=== PATIENT | male | born 1975 | race Caucasian/White ===

== ENCOUNTER 2018-11-28 13:56 | Observation (INO) ==
[2018-11-28] MEDS ORDERED: 0.9 % Sodium Chloride 1,000 ML IVC ONE (14:17)
[2018-11-28] MEDS ORDERED: Ondansetron 4 MG/2 ML VIAL IVP ONE (14:17)
[2018-11-28 15:40] LABS: Basophils % 0.3 %; Eosinophils % 0.2 %; Hematocrit 45.5 % (37.5-50.1); Hemoglobin 14.9 g/dL (12.9-16.9); Immature Granulocytes % 0.5 % (0-4); Lymphocytes # 0.8 K/mcL (0.6-4.6); Lymphocytes % 6.3 %; Mean Corpuscular HGB Conc 32.7 g/dL (31.6-35.5); Mean Corpuscular Hemoglobin 30.3 pg (28.0-33.3); Mean Corpuscular Volume 92.7 fL (83.0-100.0); Monocytes # 0.8 K/mcL (0.0-1.3); Platelet Count 173 K/mcL (140-400); Red Blood Count 4.91 M/mcL (4.19-5.50); Red Cell Distribution Width 13.2 % (11.5-14.5); Segmented Neutrophils % 86.7 %
[2018-11-28 15:41] LABS: Neutrophils # 11.4 K/mcL (1.6-8.9); White Blood Count 13.2 K/mcL (4.3-11.1)
[2018-11-28 15:41] LABS: Bilirubin,Urine Small (Negative); Blood,Urine Negative (Negative); Clarity,Urine Clear (Clear); Color,Urine Yellow (Yellow); Glucose,Urine (UA) Normal (Normal); Ketones,Urine 40 mg/dL (Negative); Leukocyte Esterase,Urine Negative (Negative); Nitrite,Urine Negative (Negative); Protein,Urine 30 mg/dL (Neg-Trace)
[2018-11-28 15:43] LABS: Bacteria,Urine None Seen per hpf (None-Few); Hyaline Casts,Urine None Seen per lpf (None-Few); RBC,Urine 0-3 per hpf (0-3); Squamous Epithelial Cell,Urine Moderate per lpf (None-Few); WBC,Urine 0-3 per hpf (0-3)
[2018-11-28 15:45] LABS: VBG HCO3 22 mEq/L (21-27); VBG PCO2 35 mmHg (41-51); VBG PH 7.41 pH Units (7.32-7.42); VBG PO2 126 mmHg (25-50)
[2018-11-28 16:03] LABS: Acetaminophen < 10 mcg/mL (10-20); Alanine Aminotransferase 12 Units/L (7-52); Albumin 4.3 g/dL (3.5-5.7); Albumin/Globulin Ratio 1.7 (1.1-2.2); Alkaline Phosphatase 52 Units/L (34-104); Aspartate Amino Transferase 19 Units/L (13-39); BUN/Creatinine Ratio 11 (6-26); Bilirubin,Direct 0.1 mg/dL (0.0-0.2); Bilirubin,Indirect 0.7 mg/dL (0.0-1.2); Bilirubin,Total 0.8 mg/dL (0.3-1.0); Blood Urea Nitrogen 9 mg/dL (6-20); Calcium 8.6 mg/dL (8.6-10.3); Carbon Dioxide 22 mEq/L (23-29); Chloride 107 mEq/L (98-107); Creatine Kinase 301 Units/L (30-223); Ethanol < 10 mg/dL (Less than 10); Globulin 2.6 g/dL (2.4-3.5); Glucose 73 mg/dL (70-105); Lipase 12 Units/L (11-82); Osmolality,Calculated 283 (280-300); Potassium 3.4 mEq/L (3.5-5.1); Salicylate < 2.5 mg/dL (15.0-30.0); Sodium 138 mEq/L (136-145); Total Protein 6.9 g/dL (6.4-8.9); Troponin I < 0.03 ng/mL (< 0.04); eGFR For African Americans > 60 (> 60); eGFR For Non-African Americans > 60 (> 60)
[2018-11-28 16:06] LABS: Amphetamine Screen,Urine Negative ng/mL (Cutoff=1000); Barbiturate Screen,Urine Negative ng/mL (Cutoff=200); Benzodiazepines Screen,Urine Negative ng/mL (Cutoff=200); Cannabinoid Screen,Urine Positive ng/mL (Cutoff = 50); Cocaine Screen,Urine Negative ng/mL (Cutoff= 300); Opiate Screen,Urine Negative ng/mL (Cutoff=300); Phencyclidine Screen,Urine Negative ng/mL (Cutoff=25)
[2018-11-28] MEDS ORDERED: cefTRIAXone 2,000 MG in Water for inj. (sterile) 20 ML IVP ONE (20:48)
[2018-11-28] MEDS ORDERED: Dexamethasone 4 MG/ML VIAL IVP ONE (20:48)
[2018-11-28 21:14] LABS: Red Blood Cell,CSF < 0.002 M/mcL
[2018-11-28 21:15] LABS: Appearance,CSF Clear (Clear)
[2018-11-28 21:33] LABS: Glucose,CSF 69 mg/dL (40-70); Total Protein,CSF 101 mg/dL (15-45)
[2018-11-29] MEDS ORDERED: Naloxone 0.4 MG/ML INJ IVP PRN (06:47)
[2018-11-29] MEDS ORDERED: 0.9 % Sodium Chloride 1,000 ML IVC SCH (07:00)
[2018-11-29] MEDS ORDERED: Potassium Chloride 40 MEQ, Lidocaine 1% 2 ML in D5% in Water 500 ML IVPB ONE (07:31)
[2018-11-29 08:05] LABS: Hematocrit 43.1 % (37.5-50.1); Hemoglobin 14.1 g/dL (12.9-16.9); Mean Corpuscular HGB Conc 32.7 g/dL (31.6-35.5); Mean Corpuscular Hemoglobin 30.7 pg (28.0-33.3); Mean Corpuscular Volume 93.7 fL (83.0-100.0); Mean Platelet Volume 10.2 fL (9.4-12.4); Platelet Count 191 K/mcL (140-400); Red Cell Distribution Width 13.1 % (11.5-14.5); White Blood Count 10.1 K/mcL (4.3-11.1)
[2018-11-29 08:26] LABS: BUN/Creatinine Ratio 11 (6-26); Blood Urea Nitrogen 10 mg/dL (6-20); Calcium 9.1 mg/dL (8.6-10.3); Carbon Dioxide 23 mEq/L (23-29); Chloride 104 mEq/L (98-107); Creatine Kinase 137 Units/L (30-223); Glucose 133 mg/dL (70-105); Osmolality,Calculated 287 (280-300); Potassium 4.2 mEq/L (3.5-5.1); Sodium 138 mEq/L (136-145); eGFR For African Americans > 60 (> 60); eGFR For Non-African Americans > 60 (> 60)
[2018-11-29] MEDS ORDERED: Ringers Solution, Lactated 1,000 ML IVC ONE (08:32)
[2018-11-29] MEDS ORDERED: Acetaminophen 325 MG TABLET PO PRN (08:39)
[2018-11-29] MEDS ORDERED: Ringers Solution, Lactated 1,000 ML ONE (09:24)
[2018-11-29] MEDS: Dexamethasone 10 MG/ML VIAL IVP SCH ×3 (09:50→20:14)
[2018-11-29 11:28] LABS: Adenovirus Not Detected (Not Detect); Bordetella Pertussis Not Detected (Not Detect); Chlamydophila pneumoniae Not Detected (Not Detect); Coronavirus 229E Not Detected (Not Detect); Coronavirus HKU1 Not Detected (Not Detect); Coronavirus NL63 Not Detected (Not Detect); Coronavirus OC43 Not Detected (Not Detect); Human Metapneumovirus Not Detected (Not Detect); Human Rhinovirus/Enterovirus Not Detected (Not Detect); Influenza A Subtype 2009 H1 Not Detected (Not Detect); Influenza A Untypeable Not Detected (Not Detect); Influenza B Not Detected (Not Detect); Mycoplasma pneumoniae Not Detected (Not Detect); Parainfluenza Virus 1 Not Detected (Not Detect); Parainfluenza Virus 2 Not Detected (Not Detect); Parainfluenza Virus 3 Not Detected (Not Detect); Parainfluenza Virus 4 Not Detected (Not Detect); Respiratory Syncytial Virus Not Detected (Not Detect)
[2018-11-29] MEDS: 0.9 % Sodium Chloride 1,000 ML IVC SCH (14:55)
[2018-11-29] MEDS ORDERED: *HR* Heparin 5,000 UNIT/ML VIAL SQ SCH (18:00)
[2018-11-29] MEDS ORDERED: Ondansetron 4 MG/2 ML VIAL IVP PRN (20:52)
[2018-11-29] MEDS ORDERED: cefTRIAXone 2,000 MG in 0.9 % Sodium Chloride Mini Bag 100 ML IVPB SCH (21:00)
[2018-11-30] MEDS: Dexamethasone 10 MG/ML VIAL IVP SCH ×2 (03:10→08:10)
[2018-11-30] MEDS: 0.9 % Sodium Chloride 1,000 ML IVC SCH (03:11)
[2018-11-30 03:41] LABS: Basophils % 0.1 %; Hematocrit 39.4 % (37.5-50.1); Hemoglobin 13.2 g/dL (12.9-16.9); Immature Granulocytes % 0.6 % (0-4); Lymphocytes # 0.6 K/mcL (0.6-4.6); Lymphocytes % 3.2 %; Mean Corpuscular HGB Conc 33.5 g/dL (31.6-35.5); Mean Corpuscular Hemoglobin 30.6 pg (28.0-33.3); Mean Corpuscular Volume 91.4 fL (83.0-100.0); Mean Platelet Volume 10.3 fL (9.4-12.4); Monocytes # 0.5 K/mcL (0.0-1.3); Monocytes % 2.3 %; Neutrophils # 18.4 K/mcL (1.6-8.9); Platelet Count 173 K/mcL (140-400); Red Blood Count 4.31 M/mcL (4.19-5.50); Segmented Neutrophils % 93.8 %
[2018-11-30 03:42] LABS: White Blood Count 19.6 K/mcL (4.3-11.1)
[2018-11-30 04:03] LABS: BUN/Creatinine Ratio 16 (6-26); Blood Urea Nitrogen 14 mg/dL (6-20); Calcium 8.9 mg/dL (8.6-10.3); Carbon Dioxide 26 mEq/L (23-29); Chloride 107 mEq/L (98-107); Glucose 143 mg/dL (70-105); Osmolality,Calculated 293 (280-300); Potassium 4.1 mEq/L (3.5-5.1); Sodium 140 mEq/L (136-145); eGFR For African Americans > 60 (> 60); eGFR For Non-African Americans > 60 (> 60)
[2018-11-30] MEDS ORDERED: Nicotine 21 MG PATCH.TD24 TD SCH (09:00)
[2018-11-30 11:48] VITALS: BP 127/78
[2018-11-30] MEDS ORDERED: Aminoglycoside Consult 1 EACH MC ONE (17:23)
[2018-12-01 10:12] LABS: HSV 2 Glycoprotein G IgG CSF 0.08 IV (<=0.89)
[2018-12-03 18:51] LABS: Hepatitis B Surface Antibody < 3.10 mIU/mL
[2018-12-03 18:58] LABS: Hepatitis B Surface Antigen Nonreactive (Nonreactive)
[2018-12-03 19:44] LABS: HIV-1&2 Antibody & p24 Ag Nonreactive (Nonreactive)
[2018-12-03 20:00] LABS: Hepatitis C Virus Antibody Nonreactive (Nonreactive)
== END 2018-11-30 17:24 | disposition left against medical advice (07) | DRG 872 ==
LOC: EMEROOARM 13:56 → 2NENU 13:56 → OBSVTOIN 22:15 → SUATTDRO 22:15 → 2NENU 22:37 → INTOOBSV 11-30 14:56
PROVIDERS: ADMIT Internal Medicine; ATTEND Internal Medicine

== ENCOUNTER 2018-11-30 22:12 | Observation (INO) ==
[2018-11-30] MEDS ORDERED: Ondansetron 4 MG/2 ML VIAL IVP STA (23:19)
[2018-11-30 23:24] LABS: Bilirubin,Urine Negative (Negative); Blood,Urine Negative (Negative); Clarity,Urine Clear (Clear); Color,Urine Yellow (Yellow); Glucose,Urine (UA) Normal (Normal); Ketones,Urine Negative (Negative); Leukocyte Esterase,Urine Negative (Negative); Nitrite,Urine Negative (Negative); PH,Urine 5.5 pH Units (5.0-8.0); Protein,Urine Negative (Neg-Trace); Specific Gravity,Urine 1.019 (1.010-1.025); Urobilinogen,Urine Normal (Normal)
[2018-11-30 23:27] LABS: Amphetamine Screen,Urine Negative ng/mL (Cutoff=1000); Barbiturate Screen,Urine Negative ng/mL (Cutoff=200); Benzodiazepines Screen,Urine Negative ng/mL (Cutoff=200); Cannabinoid Screen,Urine Negative ng/mL (Cutoff = 50); Cocaine Screen,Urine Negative ng/mL (Cutoff= 300); Opiate Screen,Urine Negative ng/mL (Cutoff=300); Phencyclidine Screen,Urine Negative ng/mL (Cutoff=25)
[2018-11-30 23:40] LABS: Basophils % 0.1 %; Mean Corpuscular Hemoglobin 30.8 pg (28.0-33.3); Mean Platelet Volume 10.7 fL (9.4-12.4); Segmented Neutrophils % 91.2 %
[2018-11-30 23:42] LABS: Hematocrit 40.6 % (37.5-50.1); Hemoglobin 13.5 g/dL (12.9-16.9); Immature Granulocytes % 0.9 % (0-4); Lymphocytes # 0.7 K/mcL (0.6-4.6); Lymphocytes % 2.6 %; Mean Corpuscular HGB Conc 33.3 g/dL (31.6-35.5); Mean Corpuscular Volume 92.5 fL (83.0-100.0); Monocytes # 1.4 K/mcL (0.0-1.3); Monocytes % 5.2 %; Neutrophils # 24.7 K/mcL (1.6-8.9); Platelet Count 201 K/mcL (140-400); Red Blood Count 4.39 M/mcL (4.19-5.50); Red Cell Distribution Width 13.2 % (11.5-14.5); White Blood Count 27.1 K/mcL (4.3-11.1)
[2018-12-01 00:09] LABS: Alanine Aminotransferase 15 Units/L (7-52); Albumin 4.2 g/dL (3.5-5.7); Albumin/Globulin Ratio 1.6 (1.1-2.2); Alkaline Phosphatase 48 Units/L (34-104); Aspartate Amino Transferase 18 Units/L (13-39); BUN/Creatinine Ratio 14 (6-26); Bilirubin,Indirect 0.3 mg/dL (0.0-1.2); Bilirubin,Total 0.3 mg/dL (0.3-1.0); Blood Urea Nitrogen 12 mg/dL (6-20); Calcium 9.3 mg/dL (8.6-10.3); Carbon Dioxide 24 mEq/L (23-29); Chloride 107 mEq/L (98-107); Globulin 2.6 g/dL (2.4-3.5); Glucose 135 mg/dL (70-105); Lipase 24 Units/L (11-82); Osmolality,Calculated 290 (280-300); Sodium 139 mEq/L (136-145); Total Protein 6.8 g/dL (6.4-8.9); eGFR For African Americans > 60 (> 60); eGFR For Non-African Americans > 60 (> 60)
[2018-12-01 00:12] LABS: Platelet Estimate Normal (Normal)
[2018-12-01] MEDS ORDERED: Naloxone 0.4 MG/ML INJ IVP PRN (02:36)
[2018-12-01] MEDS ORDERED: Nicotine 21 MG PATCH.TD24 TD PRN (03:02)
[2018-12-01] MEDS ORDERED: 0.9 % Sodium Chloride 1,000 ML IVC ONE (03:05)
[2018-12-01] MEDS: Dexamethasone 10 MG/ML VIAL IVP SCH ×4 (03:29→20:26)
[2018-12-01 05:00] LABS: Hematocrit 38.4 % (37.5-50.1); Mean Corpuscular HGB Conc 33.9 g/dL (31.6-35.5); Mean Corpuscular Hemoglobin 30.6 pg (28.0-33.3); Mean Corpuscular Volume 90.4 fL (83.0-100.0); Mean Platelet Volume 10.4 fL (9.4-12.4); Platelet Count 177 K/mcL (140-400); Red Blood Count 4.25 M/mcL (4.19-5.50); Red Cell Distribution Width 13.3 % (11.5-14.5); White Blood Count 19.7 K/mcL (4.3-11.1)
[2018-12-01] MEDS: Pantoprazole 40 MG VIAL IVP SCH (05:08)
[2018-12-01 05:19] LABS: BUN/Creatinine Ratio 14 (6-26); Blood Urea Nitrogen 11 mg/dL (6-20); Carbon Dioxide 25 mEq/L (23-29); Chloride 108 mEq/L (98-107); Glucose 107 mg/dL (70-105); Osmolality,Calculated 288 (280-300); Potassium 3.6 mEq/L (3.5-5.1); Sodium 139 mEq/L (136-145); eGFR For African Americans > 60 (> 60); eGFR For Non-African Americans > 60 (> 60)
[2018-12-01] MEDS ORDERED: Ketorolac 30 MG/ML VIAL IVP PRN (11:18)
[2018-12-01] MEDS ORDERED: Acetaminophen 325 MG TABLET PO PRN (11:18)
[2018-12-01] MEDS ORDERED: cefTRIAXone 2,000 MG in Water for inj. (sterile) 20 ML IVP SCH (21:00)
[2018-12-02] MEDS: Dexamethasone 10 MG/ML VIAL IVP SCH (02:19)
[2018-12-02 03:33] VITALS: BP 120/79
[2018-12-02] MEDS: Pantoprazole 40 MG VIAL IVP SCH (05:10)
[2018-12-02 05:54] LABS: Basophils % 0.1 %; Hematocrit 36.2 % (37.5-50.1); Immature Granulocytes % 0.7 % (0-4); Lymphocytes # 0.4 K/mcL (0.6-4.6); Lymphocytes % 4.3 %; Mean Corpuscular HGB Conc 33.1 g/dL (31.6-35.5); Mean Corpuscular Hemoglobin 29.9 pg (28.0-33.3); Mean Corpuscular Volume 90.3 fL (83.0-100.0); Mean Platelet Volume 11.8 fL (9.4-12.4); Monocytes # 0.3 K/mcL (0.0-1.3); Monocytes % 2.7 %; Neutrophils # 9.2 K/mcL (1.6-8.9); Platelet Count 148 K/mcL (140-400); Red Blood Count 4.01 M/mcL (4.19-5.50); Red Cell Distribution Width 13.4 % (11.5-14.5); Segmented Neutrophils % 92.2 %
[2018-12-02 06:51] LABS: BUN/Creatinine Ratio 12 (6-26); Blood Urea Nitrogen 12 mg/dL (6-20); Calcium 8.9 mg/dL (8.6-10.3); Carbon Dioxide 23 mEq/L (23-29); Chloride 107 mEq/L (98-107); Glucose 164 mg/dL (70-105); Osmolality,Calculated 291 (280-300); Potassium 4.3 mEq/L (3.5-5.1); Sodium 139 mEq/L (136-145); eGFR For African Americans > 60 (> 60); eGFR For Non-African Americans > 60 (> 60)
== END 2018-12-02 09:25 | disposition left against medical advice (07) ==
LOC: EMEROOARM 22:12 → 2ANU 22:12 → SUATTDRO 12-01 00:41 → 2ANU 12-01 01:23
PROVIDERS: ADMIT Internal Medicine; ATTEND Internal Medicine